=== PATIENT | male | born 1970 | race Caucasian/White ===

== ENCOUNTER 2021-05-15 11:32 | Emergency (ER) | payer BC, SELFPAY ==
--- NOTE | ~2021-05-15 | CT_ITS ---
EXAMINATION: CT abdomen pelvis wo con EXAM DATE: 05/15/2021 12:17 INDICATION: Hematuria, bilateral flank pain. TECHNIQUE: Spiral CT of the abdomen and pelvis was performed without contrast. Axial, coronal and sag ittal images were reviewed. The dose-length product (DLP) for this examination was 488.26 mGy-cm. T he exposure was tailored according to patient size (auto mA exposure control), and iterative reconstr uction (ASIR) was used as additional dose reduction technique. There is no prior study for compariso n. FINDINGS: Punctate left inferior calyceal stone. No ureteral stones. Mild prostatomegaly. There is d iffuse moderate bladder wall thickening with hazy indistinct wall, inflammation. Appearance consisten t with acute cystitis. Calcified vasa deferentia, has correlation diabetes. The liver, spleen, adren al glands and pancreas are unremarkable. Gallbladder is unremarkable. No biliary obstruction. Ther e is no retroperitoneal or pelvic lymphadenopathy. The appendix is normal. The stomach and small bowel are unremarkable. There is expected amount of c olonic stool. No free intraperitoneal gas. The heart is normal in size. There are no pericardial or pleural effusions. The lung bases are unremarkable. There are no osteoblastic or osteolytic les ions identified. IMPRESSION: 1. Severe acute cystitis. 2. Punctate left nephrolithiasis. Reviewed, dictated and finalized at location B. CLERK PASSENGER
[2021-05-15 11:37] VITALS: BP 105/76; PULSE 75; RESP 16; O2SAT 98
[2021-05-15 12:22] VITALS: BP 105/76; PULSE 75; RESP 20; TEMP 36.3; O2SAT 98
[2021-05-15 12:52] LABS: Add Urine Microscopic? YES; Appearance Urine Cloudy (Clear); Bilirubin Urine Negative (Negative); Blood Urine 3+ (Negative); Color Urine Amber (Yellow); Glucose Urine UA 3+ mg/dL (Negative); Ketones Urine Negative (Negative); Leukocyte Esterase Ur Negative LEU/UL (Negative); Mucus Urine Rare /lpf; Nitrate Urine Negative (Negative); Protein Urine 3+ mg/dL (Negative); RBC Urine >75 /hpf (0-2); Urobilinogen Urine Negative mg/dL (<2.0); WBC Urine 16-20 /hpf
[2021-05-15 13:08] LABS: Basophils Absolute Auto 0.1 K/mm3 (0.0-0.1); Basophils Percent Auto 0.6 % (0.2-1.2); Eosinophils Absolute Auto 0.3 K/mm3 (0-0.3); Eosinophils Percent Auto 3.2 % (0-4.4); Hematocrit 48.1 % (42.0-52.0); Hemoglobin 16.4 g/dL (14.0-18.0); Immature Granulocyte Absolute 0.02 K/mm3 (0.00-0.031); Immature Granulocyte Percent A 0.2 % (0-0.5); Lymphocytes Percent Auto 26.4 % (18.3-44.2); Mean Corpuscular HGB Conc 34.1 g/dl (32-36); Mean Corpuscular Hemoglobin 28.3 pg (26-34); Mean Corpuscular Volume 83.1 fl (80-100); Monocytes Absolute Auto 1.1 K/mm3 (0.1-0.6); Monocytes Percent Auto 9.9 % (2.6-8.5); Neutrophils Absolute Auto 6.4 K/mm3 (1.3-6.7); Neutrophils Percent Auto 59.7 % (45.5-73.1); Platelet Count Result 268 k/mm3 (150-375); Red Blood Count 5.79 M/mm3 (4.6-6.20); White Blood Count 10.6 K/mm3 (4.5-10.0)
[2021-05-15 13:22] LABS: Anion Gap 9 mmol/L (8-16); Blood Urea Nitrogen 16 mg/dL (9-20); Calcium 9.8 mg/dL (8.4-10.2); Carbon Dioxide 28 mmol/L (22-30); Chloride 100 mmol/L (98-107); Estimated CRCL calculation 112 ml/min; Estimated Glomerular Filt Rate > 60; Glucose 175 mg/dL (65-110); Potassium 4.3 mmol/L (3.4-5.0); Sodium 137 mmol/L (137-145)
[2021-05-15 13:42] LABS: Specific Grav Ur 1.036 (1.001-1.035)
--- NOTE | 2021-05-15 14:21 | ED.GENADULT ---
HPI - General Adult General Chief complaint: Urogenital-Male Stated complaint: groin pain/urinary frequency Time Seen by Provider: 05/15/21 11:45 History of Present Illness HPI narrative: Patient is a 51-year-old male who presents ER with urinary frequency urgency and dysuria as well as hematuria for the last 3 days. No fevers or chills or sweats. Sent by PCP due to concerns for kidney stone. Pain radiates from his lower quadrants into his groin bilaterally. Related Data Home Medications Medication Instructions Recorded Confirmed atorvastatin 05/15/21 canagliflozin [Invokana] mg 05/15/21 ergocalciferol (vitamin D2) 05/15/21 fenofibrate nanocrystallized mg PO 05/15/21 insulin degludec [Tresiba SUBCUT 05/15/21 FlexTouch U-100] insulin lispro [Humalog KwikPen SUBCUT 05/15/21 Insulin] lisinopril 05/15/21 metoprolol succinate PO 05/15/21 ticagrelor [Brilinta] mg 05/15/21 Allergies Allergy/AdvReac Type Severity Reaction Status Date / Time NKDA Allergy Mild Unknown Uncoded 05/15/21 12:25 Review of Systems Review of Systems: All systems reviewed & are unremarkable except as noted in HPI and below Constitutional: Constitutional: Denies fever(s) and Denies weakness Gastrointestinal: Gastrointestinal: Reports abdominal pain, Denies nausea and Denies vomiting Genitourinary: Genitourinary: Reports hematuria, Reports dysuria, Denies penile discharge, Denies testicular pain and Reports urinary frequency Musculoskeletal: Musculoskeletal: Denies back pain and Denies muscle cramps PMFSH Past Medical History Medical History (Updated 05/15/21 @ 14:33 by Jasper Brumfield MD) Hypercholesterolemia Type 2 diabetes mellitus Surgical History Surgical History (Updated 05/15/21 @ 14:25 by Jasper Brumfield MD) No pertinent past surgical history Exam Narrative: GENERAL: Well-appearing, well-nourished, and in no acute distress. HEAD: Normocephalic, atraumatic. CHEST: Clear to auscultation. No respiratory distress. HEART: Regular rate and rhythm. Normal peripheral pulses. ABDOMEN: Soft, suprapubic discomfort without guarding, nondistended. EXTREMITIES: Normal range of motion. No edema. NEURO: Alert and oriented x3. PSYCH: Normal mood and affect. Course Course Emergency Course: Patient informed of results. Discharge home. Vital Signs Vital signs: Vital Signs Pulse Rate 75 05/15/21 11:37 Respiratory Rate 16 05/15/21 11:37 Blood Pressure 105/76 05/15/21 11:37 Pulse Oximetry 98 05/15/21 11:37 Temperature 97.4 F L 05/15/21 12:22 Pulse Rate 75 05/15/21 12:22 Respiratory Rate 20 05/15/21 12:22 Blood Pressure 105/76 05/15/21 12:22 Pulse Oximetry 98 05/15/21 12:22 Medical Decision Making Vital Signs Vital Signs: Vital Signs Pulse Rate 75 05/15/21 11:37 Respiratory Rate 16 05/15/21 11:37 Blood Pressure 105/76 05/15/21 11:37 Pulse Oximetry 98 05/15/21 11:37 Temperature 97.4 F L 05/15/21 12:22 Pulse Rate 75 05/15/21 12:22 Respiratory Rate 20 05/15/21 12:22 Blood Pressure 105/76 05/15/21 12:22 Pulse Oximetry 98 05/15/21 12:22 Lab Data Result diagrams: 05/15/21 12:54 05/15/21 12:54 Labs: Lab Results 05/15/21 05/15/21 05/15/21 Range/Units 12:28 12:54 12:54 WBC 10.6 H (4.5-10.0) K/mm3 RBC 5.79 (4.6-6.20) M/mm3 Hgb 16.4 (14.0-18.0) g/dL Hct 48.1 (42.0-52.0) % MCV 83.1 (80-100) fl MCH 28.3 (26-34) pg MCHC 34.1 (32-36) g/dl RDW 13.0 (11.5-14.5) % Plt Count 268 (150-375) k/mm3 MPV 11.0 H (7.4-10.4) fl Immature Gran % (Auto) 0.2 (0-0.5) % Neut % (Auto) 59.7 (45.5-73.1) % Lymph % (Auto) 26.4 (18.3-44.2) % [place] % (Auto) 9.9 H (2.6-8.5) % Eos % (Auto) 3.2 (0-4.4) % Baso % (Auto) 0.6 (0.2-1.2) % Lymph # (Auto) 2.80 (0.9-3.2) K/mm3 [place] # (Auto) 1.1 H (0.1-0.6) K/mm3 Eos # (Auto) 0.3 (0-0.3) K/mm3 Baso
== END 2021-05-15 14:57 | disposition home or self-care (01) ==
PROVIDERS: Emergency Provider Emergency Medicine; PCP Family Medicine
DX: N30.90 Cystitis, unspecified without hematuria (principal); E78.00 Pure hypercholesterolemia, unspecified; E11.9 Type 2 diabetes mellitus without complications
CPT/HCPCS: 36415; 74176; 80048; 81001; 85025; 87086; 87088; 99284

== ENCOUNTER 2025-03-14 01:16 | Day surgery (SDC) | payer BC, SELFPAY ==
--- OUTSIDE RECORDS SUMMARY | 2008-09-29 03:30 | XMS_ITS | Continuity of Care Document ---
Author Organization [facility] Address [address] [place] [address] [address] [place] [address] Phone Care Team Providers Care Communications Electrician Supervisor Name Role Phone Mery Doe Unavailable Unavailable Procedures Procedure Date Office/outpatient Visit, [facility] Advance Directives Directive Yes / No Effective Date File Name No Information Encounters Encounter Description Practice Location Reason(s) For Visit Diagnoses Date Provider Providers Copied on Encounter Office/outpat ient Visit, [facility], [address] [place] [address] [address], [place], [place], [id number], tel:[phone] [facility] No Information 1-[address] , [address], [place], [address], [place]. tel:[phone] Referring Provider: Simeon Lim MD, [address] [place], [address]. tel:[phone] Family History Family Member Type Diagnosis Age At Onset No Information Payers Payer name Insurance type Covered democrat ID Authoriza tion(s) BCBS [place] Out [place] [id number] Social History Type Description Quantity Date Captured Comments Sex Male Smoking Status No Information Chief Complaint And Reason For Visit No Information Reason For Referral Reason For Referral No Information History Of Present Illness Encounter Date Complaint History Of Prese nt Illness No Information Functional Status Date Functional Assessmen t No Information Instructions Date Instruction Additional Infor mation No Information Assessments Type Assessment Date No Information Patient Care Teams Name Effective Dates (start - stop) Status Members No Information
[2025-03-10 12:20] VITALS: BMI 37.6
--- NOTE | 2025-03-10 12:43 | PC.NURSE ---
Spoke with _03/09/[address] Rodriguez office for clearance to hold Brilinta. Patient verbalizes that Dr. Rodriguez told him to hold Brilinta starting with pm dose 03/09/2025 until after colonoscopy and the Endoscopist will instruct him when to restart after the procedure. To remain on his ASA 81mg daily.
--- OUTSIDE RECORDS SUMMARY | 2025-03-14 01:18 | XMS_ITS | Encounter Summary ---
Author Organization [facility] Address [address] [place] [address] Care Team Providers Care E Learning Developer Name Role Phone Unavailable Primary Care Provider Unavailabl e Encounter Details Date Type Department Care Team (Late st Contact Info) Description 05/24/2019 Lab Requisition [facility] [address] [place] [address] [place] [place] [address] Pedro Mayers MD [address] [place] [address] Social History Tobacco Use Types Packs/Day Years Used Date Smoking Tobacco: Never Assessed Sex and Gender Information Value Date Recorded Sex Assigned at Not on file Legal Sex Male 11:36 PM CDT Gender Identity Not on file Sexual Orientation Not on file documented as of this encounter Plan of Treatment Not on file documented as of this encounter Procedures Procedure Name Priority Date/Time Associated Diagnosis Comments TROPONIN Stat 05/24/2019 3:35 PM INTERNET SALES ASSOCIATE BRAIN NATRIURETIC PEPTIDE, BNP OR PROBNP Routine 05/24/2019 3:35 PM INTERNET SALES ASSOCIATE documented in this encounter Results * (ABNORMAL) BRAIN NATRIURETIC PEPTIDE, BNP OR PROBNP (05/24/2019 3:35 PM INTERNET SALES ASSOCIATE) PROBNP, N TERMINAL 888(H) <124 pg/mL 05/24/2019 4:28 PM INTERNET SALES ASSOCIATE [facility] [employer] [facility] Comment: Reference values for screening purposes based on machine tester's recommendation: Patients less than 75 years: <125 pg/mL Patients 75 years and older: <450 pg/mL Reference values for determination of acute congestive heart failure in dyspneic patients based on PRIDE study (Am J Cardiol 2005;95:948): Patients less than 50 years: <450 pg/mL (Negative predictive value= 99%) Patients 50 years and older: <900 pg/mL (Negative predictive value= 92%) Rule out cutpoint, all ages: <300 pg/mL (Negative predictive value= 99%) Blood Collection / Unknown 05/24/2019 3:35 PM INTERNET SALES ASSOCIATE 05/24/2019 3:35 PM INTERNET SALES ASSOCIATE Pedro Mayers MD CHEMISTRY ORDERABLES Umm l Result [facility] CLIA# [id number] [address] [place] [address] * (ABNORMAL) TROPONIN (05/24/2019 3:35 PM INTERNET SALES ASSOCIATE) TROPONIN T, 5TH GEN 44(H) <=15 ng/L 05/24/2019 4:30 PM INTERNET SALES ASSOCIATE [facility] Blood Collection / Unknown 05/24/2019 3:35 PM INTERNET SALES ASSOCIATE 05/24/2019 3:35 PM INTERNET SALES ASSOCIATE Narrative [facility] - 05/24/2019 4:30 PM INTERNET SALES ASSOCIATE Troponin elevated. us Pedro Mayers MD CHEMISTRY ORDERABLES Umm l Result Performing Organization Address [facility]/ZIP Co de Phone Number [facility] [employer] [facility] CLIA# [id number] [address] [place] [address] documented in this encounter Visit Diagnoses Not on filedocumented in this encounter
--- OUTSIDE RECORDS SUMMARY | 2025-03-14 01:18 | XMS_ITS | Clinical Summary ---
Author Organization [facility] Address [address] [place] [phone] Phone Care Team Providers Care Barrow Worker Helper Name Role Phone Unavailable Primary Care Provider Unavailabl e Social History Tobacco Use Types Packs/Day Years Used Date Smoking Tobacco: Never Assessed Sex and Gender Information Value Date Recorded Sex Assigned at Not on file Legal Sex Male 11:36 PM CDT Gender Identity Not on file Sexual Orientation Not on file Plan of Treatment Health Maintenance Due Date Last Done Comments DTAP/TDAP/TD VACCINES (1 - Tdap) 01/07/1991 HEPATITIS B VACCINES (1 of 3 - 19+ 3-dose series) 01/1991 COLORECTAL SCREENING 01/07/2017 Colorectal Cancer Screening 01/07/2017 FIT-DNA Q 3 years 01/07/2017 FIT/FOBT Q 1 year 01/07/2017 Flex Sig/CT Colonography Q 5 years 01/07/2017 ZOSTER VACCINE (1 of 2) 01/07/2022 INFLUENZA VACCINE (#1) 2024
--- OUTSIDE RECORDS SUMMARY | 2025-03-14 01:19 | XMS_ITS | Clinical Summary ---
Author Organization [facility] Address [address] [place] [address] Care Team Providers Care Wood Patternmaker Name Role Phone Simeon Lim MD Primary Care Provider [phone] Allergies Active Allergy Reactions Criticality Noted Date Comments Insulin Glargine Other (See comments) Medium 8 Abdominal cramping, gas, bloating Medications insulin syringe-needle U-100 0.5 mL 31 gauge x 5/16 syringe USE 3-4 DAILY Active tadalafil (CIALIS) 20 mg tablet Take 1 tablet (20 mg total) by mouth daily as needed for erectile dysfunction. 10 tablet 3 Active blood glucose diagnostic stripIndications:Ty pe 2 diabetes mellitus with hyperglycemia, unspecified whether fpc insulin use (HCC) verio one touch test strips test 4x/ day 400 each 2 Active lancets (ONETOUCH DELICA LANCETS) 30 gauge miscIndications:Typ e 2 diabetes mellitus with hyperglycemia, unspecified whether long term care administrator insulin use ([facility]) Check blood sugar four times a day or as directed 300 each 3 Active metoprolol XL (TOPROL-XL) 50 mg 24 hr tablet Take 1 tablet (50 mg total) by mouth daily 30 tablet 11 Active Additional Information Patient not taking.Reported on 04/27/2023 aspirin 81 mg enteric coated tablet Take 1 tablet (81 mg total) by mouth daily 30 tablet 11 Active glucagon (Gvoke PFS 1-Pack Syringe) 1 mg/0.2 mL syringeIndications: Coronary artery disease involving hopi heart without angina pectoris, unspecified vessel or lesion type,Type 2 diabetes mellitus with other circulatory complication, with long-term current use of insulin Inject 1 mg under the skin as needed (as needed for severe hypoglycemia) 2 Syringe 3 020 Active Additional Information Patient not taking.Reported on 04/27/2023 pen needle, diabetic (BD Ultra-Fine Keily Pen Needle) 32 gauge x needleIndications:T ype 2 diabetes mellitus with hyperglycemia, unspecified whether fpc insulin use (HCC) Use with insulin dosing 4-5 x/ day 350 each 3 021 Active fenofibrate nanocrystallized (Tricor) 145 mg tabletIndications:T ype 2 diabetes mellitus treated with insulin ([facility]) Take 1 tablet (145 mg total) by mouth daily 90 tablet 2 021 Active atorvastatin (LIPITOR) 80 mg tablet Take 1 tablet (80 mg total) by mouth daily 90 tablet 3 021 Active tamsulosin (FLOMAX) 0.4 mg extended release capsule Take by mouth daily 021 Active Brilinta 60 mg tablet Take 1 tablet (60 mg total) by mouth 2 (two) times a day 022 Active flash glucose sensor (FreeStyle Poornima 2 Sensor) kitIndications:Type 2 diabetes mellitus with other circulatory complication, with long-term current use of insulin Use 1 sensor every 14 days 6 kit 3 025 Active ezetimibe (ZETIA) 10 mg tabletIndications:T ype 2 diabetes mellitus with hyperglycemia, with long-term current use of insulin ([facility]),Mixed hyperlipidemia,David nary artery disease involving hopi heart without angina pectoris, unspecified vessel or lesion type TAKE 1 TABLET DAILY 90 tablet 3 025 Active gabapentin (NEURONTIN) 100 mg capsuleIndications: Diabetic neuropathy associated with type 2 diabetes mellitus ([facility]) Take 1 capsule (100 mg total) by mouth 3 (three) times a day 270 capsule 1 025 2025 Active ergocalciferol (VITAMIN D) 50,000 unit capsule Take 1 capsule (50,000 Units total) by mouth daily Active insulin degludec (TRESIBA) 100 unit/mL (3 mL) pen for injectionIndication s:Type 2 diabetes mellitus with hyperglycemia, with long-term current use of insulin (HCC) INJECT 54 UNITS DAILY (TOTAL DAILY DOSE 58 UNITS WITH PRIMING) 45 mL 2 025 Active HumaLOG 100 unit/mL pen for injectionIndication s:Type 2 diabetes mellitus with hyperglycemia, with long-term current use of insulin (HCC) Inject 34-36 units under the skin three times a day before meals. MDD 130 units 120 mL 2 025 Active lisinopriL (PRINIVIL,ZESTRIL) 10 mg tabletIndications:T ype 2 diabetes mellitus with hyperglycemia, unspecified whether long term care administrator insulin use (HCC) TAKE 1 TABLET DAILY 90 tablet 3 025 Active lisinopriL (PRINIVIL,ZESTRIL) 10 mg tabletIndications:T ype 2 diabetes mellitus with hyperglycemia, unspecified whether fpc insulin use (HCC) Take 1 tablet (10 mg total) by mouth daily 90 tablet 2 025 2024 Discontinued Active Problems Problem Noted Date Diagnosed Date Diabetic neuropathy associat ed with type 2 diabetes mellitus 09/02/2024 Coronary artery disease involving hopi heart 1 07/12/2018 High risk medication use 05/02/2019 Assessment & Plan (05/04/2019 2:43 PM PERINATAL EDUCATOR): Intense insulin regimen in the setting of variable oral and stress intake places patient at increased risk of hypoglycemia/hyperglycemia which may have serious metabolic, CV and neuro consequences. We will continue to intensely monitor blood glucose and titrate insulin as needed to optimize glycemic control to avoid hypoglycemic/hyperglycemic events. Assessment & Plan (05/03/2019 5:31 PM PERINATAL EDUCATOR): Intense insulin regimen in the setting of variable oral and stress intake places patient at increased risk of hypoglycemia/hyperglycemia which may have serious metabolic, CV and neuro consequences. We will continue to intensely monitor blood glucose and titrate insulin as needed to optimize glycemic control to avoid hypoglycemic/hyperglycemic events. Assessment & Plan (05/02/2019 4:55 PM PERINATAL EDUCATOR): Intense insulin regimen in the setting of variable oral and stress intake places patient at increased risk of hypoglycemia/hyperglycemia which may have serious metabolic, CV and neuro consequences. We will continue to intensely monitor blood glucose and titrate insulin as needed to optimize glycemic control to avoid hypoglycemic/hyperglycemic events. ST elevation myocardial infa rction involving right coronary artery 05/01/2019 Assessment & Plan (05/03/2019 2:54 PM PERINATAL EDUCATOR): EKG with inferior STEMI, LHC with 100% proximally occluded large right coronary artery, 95% distal LAD and 90% mid circ. - PIPE to prox RCA 05/01, with resolution of his chest pain, cardiogenic shock and bradycardia. - PIPE to prox and distal-LAD, distal LCx/OM on 05/02 - Continue Aspirin 81 mg daily, Ticagrelor 90 mg BID, atorvastatin 80 - Continue metoprolol 12.5 q6hrs, can continue to titrate as tolerated and consolidate to XL prior to discharge - Frequent neurovascular checks - Encourage risk factor modification Cardiogenic shock 05/01/2019 Assessment & Plan (05/03/2019 2:57 PM PERINATAL EDUCATOR): Resolved following PCI. - Not requiring pressors or circulatory support - TTE with EF 40-45%, normal RV function, no significant valvular disease Chest wall pain 07/28/2018 Assessment & Plan (07/28/2018 3:57 PM PERINATAL EDUCATOR): See PCP regarding CP, which seems to happen occasionally at home, nonradiating, no SOB. Will see PCP this week, and go to ER if Tinea pedis of both feet 03/31/2018 Type 2 diabetes mellitus with hyperglycemia 11/30 Assessment & Plan (04/03/2018 1:03 PM CDT): .Stop toujeo tresiba 30 units daily Humalog 10 units at each meal and 1 u for every 25 points over 150 for corrections at meals Send blood sugar record to me in 2 weeks through [facility] Type 2 diabetes mellitus treated with insulin Overview (11/18/2017): He was Dx with diabetes in about 2004 when he was at a family gathering and checked his BG, which was more than 500. He saw his doctor, was started on metformin, glipizide, and later therapies included glimepiride, pioglitazone and, more recently, Bydureon as of about 8 months ago. Since this was suboptimal, he was started on hs Lantus 2014. DM complicated by asymptomatic microalbuminuria, started on lisinopril per his PCP. In 2013 Type 2 diabetes mellitus 03/28/2015 Vitamin D deficiency disease 03/20/2015 Male erectile disorder 03/19/2015 Microalbuminuria 03/19/2015 Assessment & Plan (04/03/2018 1:07 PM CDT): Needs repeat microalbumin/cr ratio soon Hyperlipidemia 03/19/2015 Assessment & Plan (05/04/2019 2:43 PM PERINATAL EDUCATOR): Managed by primary team Recommend continuing statin Assessment & Plan (05/03/2019 5:31 PM PERINATAL EDUCATOR): Managed by primary team Recommend continuing statin Assessment & Plan (05/02/2019 4:56 PM PERINATAL EDUCATOR): Managed by primary team Recommend continuing statin Assessment & Plan (05/02/2019 12:55 PM PERINATAL EDUCATOR): - Switched home atorvastatin 20 mg to 80 mg Assessment & Plan (04/03/2018 1:07 PM CDT): Needs fu FLP done in next 1-2 months Work on better BS control Essential hypertension 03/19/2015 Assessment & Plan (05/02/2019 12:49 PM PERINATAL EDUCATOR): - Continue home lisinopril 20 mg daily - Initiate metoprolol as above Type 2 diabetes mellitus, wi th long-term current use of insulin 03/19/2015 Overview (05/02/2019): 49 y.o. male with past medical history significant for CAD, HLD, HTN, microalbuminuria and T2DM who presented to OSH for 3 days of chest pain radiating down both arms and into his left jaw and was found to have inferior STEMI. Diagnosed with T2DM in 2004; managed by Dr. Aleja Avina and Raiza Schwarz NP. HGBA1C 12.1 (H) 05/01/2019 HOME REGIMEN: Tresiba 30 units daily (was out of Tresiba for ~1 month; resumed 2 weeks ago) Humalog 10 units TID with meals (he reports he usually does not take mealtime insulin) Metformin 1000 mg daily (has been out of this for ~1.5 months) Assessment & Plan (05/04/2019 2:55 PM PERINATAL EDUCATOR): Over the previous 24 hours, blood glucose in good margin of safety, but not at target with range of 146-248 mg/dl with 58 units TDD insulin coverage. Target inpatient blood glucose is 100-180 mg/dl. Blood glucose this morning was 261 mg/dl (consumed breakfast before blood glucose was checked). Pre-lunch blood glucose was 147 mg/dl. Glycemic management complicated by variable oral intake and stress. As glycemia improving, we recommend continuing the current insulin regimen. We will continue to intensely monitor blood glucose and titrate insulin as needed to optimize glycemic control to avoid hypoglycemic/hyperglycemic events. Recommendations: - Continue Lantus 25 units Q HS - Continue Humalog 10 units TID with meals - Continue mid dose correction scale TID/HS - Monitor blood glucose TID/HS Discharge Recommendations: - Tresiba 28 units once daily - Humalog 10 units TID with meals plus 1 unit per 50 points greater than 150 mg/dl. - Metformin 500 mg BID; advance to 1000 mg BID as tolerated - He would be a good candidate for GLP-1 weekly injection due to its cardioprotective qualities - Diabetes education prior to discharge (plans to send patient home with Poornima CGM) Follow Up: - 05/11 at 2:00 pm with Raiza Schwarz NP to reassess glycemia and to titrate diabetes regimen as needed. - Would start GLP-1 (Trulicity or Ozempic depending on insurance formulary) - 05/11 at 3:00 pm with MARIA ANTONIA Preston Recommendations for diabetes management were discussed with the primary team. For questions regarding this patient today, please call Gertrude Easley NP at [phone]. If after hours, please contact the Diabetes Fellow at [phone]. Assessment & Plan (05/03/2019 5:35 PM PERINATAL EDUCATOR): Over the previous 24 hours, blood glucose in good margin of safety, but not at target with range of 171-231 mg/dl with 37 units TDD insulin coverage. He only consumed one meal yesterday as he was NPO for cardiac cath and testing. Target inpatient blood glucose is 100-180 mg/dl. Fasting blood glucose was 196 mg/dl. Pre-lunch blood glucose was 193 mg/dl. Glycemic management complicated by variable oral intake and stress. As glycemia above target, we recommend increasing the bolus insulin dose and continuing the current basal/correction insulin doses. We will continue to intensely monitor blood glucose and titrate insulin as needed to optimize glycemic control to avoid hypoglycemic/hyperglycemic events. Recommendations: - Continue Lantus 25 units Q HS - Increase Humalog from 8 units to 10 units TID with meals - Continue mid dose correction scale TID/HS - Monitor blood glucose TID/HS Tentative Discharge Recommendations: - Home insulin and metformin (doses TBD) - He would be a good candidate for GLP-1 weekly injection due to its cardioprotective qualities Follow Up: - Thursday, 05/11 at 2:00 pm with Raiza Schwarz NP to reassess glycemia and to titrate diabetes regimen as needed. - Would start GLP-1 (Trulicity or Ozempic depending on insurance formulary) Recommendations for diabetes management were discussed with the primary team. For questions regarding this patient today, please call Gertrude Easley NP at [phone]. If after hours, please contact the Diabetes Fellow at [phone]. Assessment & Plan (05/02/2019 5:03 PM PERINATAL EDUCATOR): Since admission, blood glucose has been above target. On 04/30/19, blood glucose range was 369-408 mg/dl with 12 units TDD insulin coverage. Over the previous 24 hours, blood glucose remained above goal with range of 220-306 mg/dl with 66 units TDD insulin coverage. Target inpatient blood glucose is 100-180 mg/dl. Fasting blood glucose this morning was 201 mg/dl. At 1104, blood glucose was 180 mg/dl. Glycemic management complicated by variable oral intake and stress. As glycemia above target, we recommend increasing the basal insulin and correction scale insulin doses and continuing the current bolus insulin dose. We will continue to intensely monitor blood glucose and titrate insulin as needed to optimize glycemic control to avoid hypoglycemic/hyperglycemic events. Recommendations: - Increase Lantus from 20 units to 25 units Q HS - Continue Humalog 8 units TID with meals - Increase correction scale from low-dose Q 4 hours to mid dose TID/HS (once diet is advanced) - Monitor blood glucose TID/HS Tentative Discharge Recommendations: - Home insulin and metformin (doses TBD) Follow Up: - 1-2 weeks after discharge with consumer educator in [facility] with Raiza Schwarz NP/Dr. Avina to reassess glycemia and to titrate diabetes regimen as needed. Recommendations for diabetes management were discussed with the primary team. For questions regarding this patient today, please call Gertrude Easley NP at [phone]. If after hours, please contact the Diabetes Fellow at [phone]. Assessment & Plan (05/03/2019 2:54 PM PERINATAL EDUCATOR): Poorly controlled. Home regimen Tresiba 30 units daily, Humalog 10 units TID, ?sliding scale. - A1c 12.1% on admission - Hyperglycemic on admission likely secondary to poor medication compliance - Lantus 25 units QHS, Lispro 8 units + MDISS TID with meals - Endocrinology following, appreciate recs - certified breastfeeding educator consult Assessment & Plan (07/31/2018 11:24 AM PERINATAL EDUCATOR): Diabetes very poor control, doesn't check his BS and misses many doses of humalog. WE talked very directly about this issue and the extreme health risk he is putting himself in. He agrees to test more frequently, refilled all prescirptions, labs ordered, but he didn't get them done today. He agrees to send BS to us for review. Strategies discussed regarding ways to avoid missing doses. Also reviewed how to do corrections for high blood sugars. Urged to see CDE soon And seemed to agree to schedule. Encounters Date Type Department Care Team Description 01/06/2025 9:20 AM CDT Office Visit [facility] Medicine Endocrinology Metabolism and Lipid [address] [facility] [facility] [address] [place] [address] [place] [address] Bea Dave MD Type 2 diabetes mellitus with hyperglycemia, with long-term current use of insulin (HCC) (Primary Dx); Diabetic neuropathy associated with type 2 diabetes mellitus (HCC); Essential hypertension; Mixed hyperlipidemia; Coronary artery disease involving hopi heart without angina pectoris, unspecified vessel or lesion type from Last 3 Months Immunizations Immunization Administration Dates Next Due Influenza, Quadrivalent, [place] l Culture-based MDCK, Preservative Free, Antibiotic Free, Intramuscular 03/26/2020 Influenza, Unspecified 03/01/2021 Moderna SARS-CoV-2 Monovalent Vaccination (12+ Y RS) 08/14/2020,07/17/2020 Surgical History Surgery Date Site/Laterality Comments NECK SURGERY Neck Surgery - removal of a lump L side of neck - infant (Added by Conv) Medical History Medical History Date Comments Personal history of other in fectious and parasitic diseases History of varicella - (Adde d by Conv) Type 2 diabetes mellitus wit h hyperglycemia (HCC) Type 2 diabetes mellitus wit h hyperglycemia - (Added by TW Conv) Type 2 diabetes mellitus wit hout complications Diabetes mellitus treated wi th insulin and oral medication - (Added by TW Conv) Family History Medical History Relation Name Comments Diabetes type II Father Type 2 Diab etes Mellitus - (Added by TW Conv) Relation Name Status Comments Father Social History Tobacco Use Types Packs/Day Years Used Date Smoking Tobacco: Never Smokeless Tobacco: Never Tobacco Cessation:Counseling Given: Not Answered PHQ-2 Answer Date Recorded PHQ-2 Score 0 05/01/2019 Sex and Gender Information Value Date Recorded Sex Assigned at Not on file Legal Sex Male 5:04 AM PERINATAL EDUCATOR Gender Identity Not on file Sexual Orientation Not on file Obstetrics History Last Filed Vital Signs Vital Sign Reading Time Taken Comments Blood Pressure 109/70 01/06/2025 9:13 AM CDT Pulse 65 01/06/2025 9:13 AM CDT Temperature 36.9 C (98.4 F) 01/06/2025 9:13 AM CDT Respiratory Rate 18 05/04/2019 11:0 5 AM PERINATAL EDUCATOR Oxygen Saturation 97% 10/09/2020 2:57 PM CDT Inhaled Oxygen Concentration - - Weight 121.2 kg (267 lb 3.2 oz) 01/06/2025 9:13 AM CDT Height 180.3 cm (5' 11) 01/06/2025 9:13 AM CDT Body Mass Index 37.27 01/06/2025 9:13 AM CDT Plan of Treatment Health Maintenance Due Date Last Done Comments Colon Cancer Screening-Colonoscopy 1972 Hepatitis C Screening 1972 Prostate Cancer Screening-PSA 1972 Dilated Eye Exam 1972 DTaP/Tdap/Td Vaccine (1 - Tdap) 01/07/1983 Hepatitis B Screening 01/07/1990 Regular Well Visit/Exam 18-64 01/07/1990 Pneumococcal vaccine <65 (1 of 2 - PCV) 01/07/1991 Depression Screening 05/01/2020 05/01/2019 Foot Exam 05/02/2020 05/02/2019, 03/03, 11/18/2017 Zoster Vaccine (1 of 2) 01/07/2022 Covid-19 Vaccine (3 - 2024-2 6 season) 2025 08/14/2020, 07/17/2020 Influenza Vaccine (#1) 2025 03/01/2021, 2019 Albumin Creatinine Ratio, Urine 07/04/2025 07/04/2024, 04/27/2023, 01/28/2022, Additional history exists Lipid Panel 07/04/2025 07/04/2024, 04/02, 01/28/2022, Additional history exists eGFR 07/04/2025 07/04/2024, 04/02, 01/28/2022, Additional history exists Hemoglobin A1C 07/09/2025 01/06/2025, 02/0 07/2024, 08/24/2023, Additional history exists Medical Devices Implanted Type Area Associate Programmer Device Identifier Shelf Expiration Date Model / Serial / Lot SDL [employer] [id number] Synergy Monorail 4mm 2.7-2.1fr 28mm 144cm Radiopaque 1 Access - [id number] Implanted:Qty: 1 on 05/01/2019 by Pedro Mayers MD at [facility] [employer] Judah 10/24/2020 [id number] 400 / / [id number] [employer] [id number] Synergy 2.5mm 20mm 144cm Radiopaque 1 Access Port Inflation Lumen - [id number] - [id number] Implanted:Qty: 1 on 05/02/2019 by Pedro Mayers MD at [facility] [employer] Judah 01/04/2021 [id number] 250 / [id number] / [id number] [employer] Judah [id number] Synergy 4mm 12mm 144cm Radiopaque 1 Access Port Inflation Lumen - [id number] - [id number] Implanted:Qty: 1 on 05/02/2019 by Pedro Mayers MD at [facility] [employer] Judah 11/30/2020 [id number] 400 / [id number] / [id number] [employer] Judah [id number] Synergy 2.75mm 32mm 144cm Radiopaque 1 Access Port Inflation - [id number] - [id number] Implanted:Qty: 1 on 05/02/2019 by Pedro Mayers MD at [facility] [employer] Judah 11/30/2020 [id number] 270 / [id number] / [id number] Procedures Procedure Name Priority Date/Time Associated Diagnosis Comments POCT GLUCOSE Routine 01/06/2025 9:17 AM CDT Type 2 diabetes mellitus with hyperglycemia, with long-term current use of insulin (HCC) POCT HEMOGLOBIN A1C Routine 01/06/2025 9 :17 AM CDT Type 2 diabetes mellitus with hyperglycemia, with long-term current use of insulin (HCC) EGFR Routine 07/04/2024 5:49 PM PERINATAL EDUCATOR Type 2 diabetes mellitus with other circulatory complication, with long-term current use of insulin (HCC) Mixed hyperlipidemia Coronary artery disease involving hopi heart without angina pectoris, unspecified vessel or lesion type Essential hypertension Type 2 diabetes mellitus with hyperglycemia, unspecified whether long term care administrator insulin use (HCC) Type 2 diabetes mellitus with hyperglycemia, with long-term current use of insulin (HCC) LIPID PANEL Routine 07/04/2024 5:49 PM PERINATAL EDUCATOR Type 2 diabetes mellitus with other circulatory complication, with long-term current use of insulin (HCC) Mixed hyperlipidemia Coronary artery disease involving hopi heart without angina pectoris, unspecified vessel or lesion type Essential hypertension Type 2 diabetes mellitus with hyperglycemia, unspecified whether long term care administrator insulin use (HCC) Type 2 diabetes mellitus with hyperglycemia, with long-term current use of insulin (HCC) ALBUMIN CREATININE RATIO, URINE Routine 07/04/2024 5:49 PM PERINATAL EDUCATOR Type 2 diabetes mellitus with other circulatory complication, with long-term current use of insulin (HCC) Mixed hyperlipidemia Coronary artery disease involving hopi heart without angina pectoris, unspecified vessel or lesion type Essential hypertension Type 2 diabetes mellitus with hyperglycemia, unspecified whether long term care administrator insulin use (HCC) Type 2 diabetes mellitus with hyperglycemia, with long-term current use of insulin (HCC) from Last 3 Months or Most Recently Relevant to Health Maintenance Results * (ABNORMAL) POCT hemoglobin A1c (01/06/2025 9:17 AM CDT) [facility] Hemoglobin A1C, POC 11.0(A) 4.0 - 5.6 % Blood 01/06/2025 9:17 AM CDT us Bea Dave MD POINT OF CARE TEST ORDERAB LES Final Result * POCT glucose (01/06/2025 9:17 AM CDT) [facility] Glucose Blood, POC 255 Normal Fasting 70 - 100, Random <200 mg/dL Blood 01/06/2025 9:17 AM CDT us Bea Dave MD POINT OF CARE TEST ORDERAB LES Final Result * eGFR (07/04/2024 5:49 PM PERINATAL EDUCATOR) [facility] eGFR >90 >=60 mL/min/1. 73 m2 Comment: Interpretive Data Reference Interval Normal >/= 90 mL/min/1.73m2 Mildly decreased* 60 - 89 mL/min/1.73m2 Mildly to moderately decreased 45 - 59 mL/min/1.73m2 Moderately to severely decreased 30 - 44 mL/min/1.73m2 Severely decreased 15 - 29 mL/min/1.73m2 Kidney Failure < 15 mL/min/1.73m2 *Relative to young adult level Estimated glomerular filtration rate is determined by the 2020 CKD-EPI equation recommended by the National Kid[employer] (A Unifying Approach to GFR Estimation: Recommendations of the NKF-ASK Task Force on Reassessing the Inclusion of Race in Diagnosing Kidney Disease, JASN 2020). The CKD-EPI equation should not be used for patients with unstable renal function and has not been validated in children and those over 70. Current interpretive data was last reviewed 2021. Blood 07/04/2024 5:49 PM PERINATAL EDUCATOR 07/04/2024 6:22 PM PERINATAL EDUCATOR Bea Dave MD LAB BLOOD ORDERABLES Final Result Performing Organization Address [facility] Co de Phone Number [facility] Department [place] [employer] [place] [address] * (ABNORMAL) Albumin Creatinine Ratio, Urine (07/04/2024 5:49 PM PERINATAL EDUCATOR) Albumin Ur 97.4 mg/L Comment: Interpretive Data No reference range established. Current interpretive data was last revised 2018. Creatinine Ur 130.3 mg/dL [facility] Comment: Interpretive Data No reference range established. Current interpretive data was last revised 2018. Albumin Creatinine Ratio, Ur 75(H) 1 - 29 mg/g [facility] Urine 07/04/2024 5:49 PM PERINATAL EDUCATOR 07/05/2024 6:50 AM PERINATAL EDUCATOR Bea Dave MD LAB URINE ORDERABLES Final Result Performing Organization Address [facility] Co de Phone Number [facility] [place] [address] * (ABNORMAL) Lipid panel (07/04/2024 5:49 PM PERINATAL EDUCATOR) Cholesterol 103 30 - 199 mg/dL Comment: Interpretive Data Ages < or = 19 years Acceptable: <170 mg/dL Borderline high: 170-199 mg/dL High: >or= 200 mg/dL Ages > or = 20 years Desirable: <200 mg/dL Borderline high: 200-239 mg/dL High: >or= 240 mg/dL Literature References: 1. Expert Panel on Integrated Guidelines for Cardiovascular Health and Risk Reduction in Children and Adolescents. Pediatrics 2011;128:S213 2. NCEP Expert Panel. Circulation 2004;110:227 Current Interpretive Data was last revised on 2018. Triglycerides 90 <=149 mg/dL [facility] Comment: Interpretive Data Ages < or = 9 years Acceptable: <75 mg/dL Borderline high: 75-99 mg/dL High: >or= 100 mg/dL Ages 10 to 20 years Acceptable: <90 mg/dL Borderline high: 90-129 mg/dL High: >or= 130 mg/dL Ages > or = 20 years Desirable: <150 mg/dL Borderline high: 150-199 mg/dL High: 200-499 mg/dL Very high: >or= 499 mg/dL Literature References: 1. Expert Panel on Integrated Guidelines for Cardiovascular Health and Risk Reduction in Children and Adolescents. Pediatrics 2011;128:S213 2. NCEP Expert Panel. Circulation 2004;110:227 Current Interpretive Data was last revised on 2018. HDL 28(L) >=40 mg/dL [facility] Comment: Interpretive Data Ages < or = 19 years Acceptable: >45 mg/dL Borderline low: 40-45 mg/dL Low: <40 mg/dL Ages > or = 20 years Desirable: >or= 60 mg/dL Low: <40 mg/dL Literature References: 1. Expert Panel on Integrated Guidelines for Cardiovascular Health and Risk Reduction in Children and Adolescents. Pediatrics 2011;128:S213 2. NCEP Expert Panel. Circulation 2004;110:227 Current Interpretive Data was last revised on 2018. LDL, calculated 57 <=129 mg/dL [facility] Comment: Interpretive Data Ages < or = 19 years Acceptable: <110 mg/dL Borderline high: 110-129 mg/dL High: >or= 130 mg/dL Ages > or = 20 years Optimal: <100 mg/dL Near optimal: 100-129 mg/dL Borderline high: 130-159 mg/dL High: >160 mg/dL Calculated using the Rivera LDL-C estimating equation. This equation was implemented on 2024. Prior to this date LDL-C was estimated using the Friedewald equation. Literature References: 1. Expert Panel on Integrated Guidelines for Cardiovascular Health and Risk Reduction in Children and Adolescents. Pediatrics 2011;128:S213 2. NCEP Expert Panel. Circulation 2004;110:227 3. Miguel M et al. COURTNEY Cardiol. 2019September 29;5(5):540-548. doi: [email or web address] Current Interpretive Data was last revised on 2024. Non-HDL Cholesterol 75 mg/dL [facility] Comment: Interpretive Data Ages < or = 19 years Acceptable: <120 mg/dL Borderline high: 120-144 mg/dL High: >145 mg/dL Ages > or = 20 years When triglycerides are >200 mg/dL, Non-HDL cholesterol is a secondary target of therapy with treatment goals that are 30 mg/dL greater than the LDL cholesterol target. Literature References: 1. Expert Panel on Integrated Guidelines for Cardiovascular Health and Risk Reduction in Children and Adolescents. Pediatrics 2011;128:S213 2. NCEP Expert Panel. Circulation 2004;110:227 Current Interpretive Data was last revised on 2018. Chol/HDL ratio 4 [facility] Blood 07/04/2024 5:49 PM PERINATAL EDUCATOR 07/04/2024 6:09 PM PERINATAL EDUCATOR Bea Dave MD LAB BLOOD ORDERABLES Final Result [facility] [place] [address] from Last 3 Months or Most Recently Relevant to Health Maintenance Insurance [facility] CHOICE OOS [facility] CHOICE [facility] H[facility]/PPO Address: [address] [address] [place] [address] ANTHEM ACCESS Member Subscriber Plan / Payer (Ef fective 2018-Present) Name:Rahul García Relation to Subscriber:Self Name:Rahul García Payer ID:[id number] ([facility]) Type:[employer] Address: [address] ACCESS OOS ANTHEM ACCESS BLUE ACCESS OOS [facility] ACCESS BLUE ACCESS OOS BLUE ACC CHOICE OOS [facility] Address: [facility] [id number] [place] [address] Advance Directives For more information, please contact: [phone] * Full Code (Latest Code Status on File) Date Activated Date Inactivated Comments 05/01/2019 6:39 AM 05/04/2019 8:54 PM * Full Code Date Activated Date Inactivated Comments 05/01/2019 3:10 AM 05/01/2019 6:39 AM Care Teams Wood Patternmaker Relationship Specialty Start Date End Date Simeon Lim MD [address] [place] [id number] PCP - General 02/24/17
--- NOTE | 2025-03-14 08:31 | WPDANESEPPF ---
Anes - Initial Pre Proc Eval Procedure: Operation Date: 03/14/25 10:00 Proposed Procedures p Screening Colonoscopy - Salomón Cortez DO Date/Time: 03/14/25 08:31 Surgeon: Salomón Cortez DO Pre Op Diagnosis: Neoplasm screening Patient Data Age: 55 Gender: M Height: 1.8 m Weight: 122.5 kg Allergies Allergy/AdvReac Type Severity Reaction Status Date / Time NKDA Allergy Mild Unknown Uncoded 11/28/24 13:15 Home Medications ?Medication ?Instructions ?Recorded ?Confirmed ?Type ezetimibe 10 mg tablet 10 mg PO DAILY #30 tabs 08/01/22 03/14/25 Rx insulin degludec 100 unit/mL (3 60 unit subcut QAM 08/01/22 03/14/25 History mL) subcutaneous pen (Tresiba FlexTouch U-100 insulin) lisinopril 20 mg tablet 20 mg PO DAILY 08/01/22 03/14/25 History omega-3 fatty acids 1,000 mg 1,000 mg PO DAILY #90 caps 08/01/22 03/14/25 Rx capsule aspirin 81 mg capsule 81 mg PO DAILY 10/14/22 03/14/25 History insulin lispro 100 unit/mL 18 unit (0.18 mL) subcut TID #15 mL 10/14/22 03/14/25 Rx subcutaneous pen (Humalog KwikPen (U-100) Insulin) ticagrelor 60 mg tablet (Brilinta) 60 mg PO Q12H #60 tabs 10/14/22 03/14/25 Rx scopolamine base 1 mg over 3 days 1 patch transdermal Q72H PRN 12/10/22 03/10/25 Rx transdermal patch motion sickness #4 ea fenofibrate nanocrystallized 145 See Rx Instructions .Route 11/16/24 03/14/25 Rx mg tablet .COMPLEX #90 tabs gabapentin 100 mg capsule 100 mg PO DAILY 11/28/24 03/10/25 History atorvastatin 80 mg tablet 80 mg PO DAILY #90 tabs 12/30/24 03/14/25 Rx cholecalciferol (vitamin D3) 25 25 mcg PO DAILY 03/10/25 03/14/25 History mcg (1,000 unit) capsule (Vitamin D3) Patient hx anesthesia problems: none Family hx anesthesia problems: none Results Review: All pre-operative results and documents have been reviewed as part of the pre-operative evaluation. [facility] Past Medical History Medical History (Updated 03/14/25 @ 10:14 by Salomón Cortez DO) DM type 2 with diabetic mixed hyperlipidemia Essential hypertension Fatigue Vertigo Type 2 diabetes mellitus with diabetic neuropathy, with long-term current use of insulin Neurogenic bladder History of ST elevation myocardial infarction (STEMI) 05/01/2019 Erectile dysfunction Surgical History Surgical History (Updated 03/13/25 @ 15:59 by Zacarias Modi DO) History of percutaneous coronary intervention proximal and distal LAD, mid LCX and OM1 05/2019 No pertinent past surgical history Family History Family History Father No problems noted. Mother No problems noted. Social History Social History Smoking status: Never smoker Alcohol intake: never Substance use: never Substance use type: does not use Lack of Transportation: No Lack of Food: Never True Current Housing: I Have Housing Concerned About Future Housing: No Difficulty Paying Gas/Electric Bills: No Difficulty Paying for Meds: No Currently Unemployed: No Education: Trade/Vocational Certificate Difficulty w/ Childcare or Family Care: No Living arrangements: with family Occupation/Education: occupation Gender identity (if verbalized by the patient): Male Sexual Orientation (if Verbalized by the Patient): Straight or Heterosexual Spiritual care concerns: No Anes - Eval Final PreProcedure Day of Procedure 03/14/25 08:31 Patient weight: obese Heart: regular rate and rhythm Lungs: clear to auscultation Airway: Mallampati scale class IV Neurological: alert and oriented Last oral intake: >/= 8 hours ASA classification: III Emergent: no Anesthetic plan: proceed Anesthesia type and monitoring: general GIVS and standard monitoring Results Review: All pre-operative results and documents have been reviewed as part of the pre-operative evaluation. Informed Consent: The patient's anesthetic plan and its attendant risks and benefits were discussed with the patient/family/POA. Questions were solicited and answers provided to the satisfaction of the patient/family/POA.
[2025-03-14 08:57] VITALS: BP 104/65; PULSE 65; RESP 18; TEMP 36.1; O2SAT 98; BMI 36.7
[2025-03-14] MEDS: LACTATED RINGERS 1,000 ML 150 ML IV CONT (09:10)
--- NOTE | 2025-03-14 10:14 | PM.IMHP ---
H&P: HPI History of Present Illness Date/Time: 03/14/25 10:14 Chief Complaint: Screening for colorectal cancer Narrative: This is a 55-year-old man who presents for his 1st colonoscopy. He denies any hematochezia or melena. He denies family history of colon cancer. Review of Systems Review of Systems: All systems reviewed & are unremarkable except as noted in HPI and below Constitutional: Constitutional: Denies chills, Denies fever(s), Denies headache(s) and Denies weight loss Eyes: Eyes: Denies change in vision ENT: Denies dizziness, Denies headache(s), Denies neck mass and Denies throat swelling Cardiovascular: Cardiovascular: Denies chest pain, Denies lightheadedness and Denies dyspnea Respiratory: Respiratory: Denies cough, Denies dyspnea and Denies wheezing Gastrointestinal: Gastrointestinal: Denies abdominal pain, Denies change in bowel habits, Denies nausea and Denies vomiting Genitourinary: Genitourinary: Denies hematuria and Denies dysuria Musculoskeletal: Musculoskeletal: Reports as per HPI Integumentary/Breasts: Skin/Breast: Reports as per HPI Neurologic: Denies dizziness and Denies headache(s) Allergic/Immunologic: Allergic/Immunologic: Denies throat swelling and Denies wheezing PMFSH Past Medical History Medical History (Updated 03/14/25 @ 10:14 by Salomón Cortez DO) DM type 2 with diabetic mixed hyperlipidemia Essential hypertension Fatigue Vertigo Type 2 diabetes mellitus with diabetic neuropathy, with long-term current use of insulin Neurogenic bladder History of ST elevation myocardial infarction (STEMI) 05/01/2019 Erectile dysfunction Surgical History Surgical History (Updated 03/13/25 @ 15:59 by Zacarias Modi DO) History of percutaneous coronary intervention proximal and distal LAD, mid LCX and OM1 05/2019 No pertinent past surgical history Family History Family History Father No problems noted. Mother No problems noted. Social History Social History Smoking status: Never smoker Alcohol intake: never Substance use: never Substance use type: does not use Lack of Transportation: No Lack of Food: Never True Current Housing: I Have Housing Concerned About Future Housing: No Difficulty Paying Gas/Electric Bills: No Difficulty Paying for Meds: No Currently Unemployed: No Education: Trade/Vocational Certificate Difficulty w/ Childcare or Family Care: No Living arrangements: with family Occupation/Education: occupation Gender identity (if verbalized by the patient): Male Sexual Orientation (if Verbalized by the Patient): Straight or Heterosexual Spiritual care concerns: No Meds Home Medications and Allergies Home Medications ?Medication ?Instructions ?Recorded ?Confirmed ?Type ezetimibe 10 mg tablet 10 mg PO DAILY #30 tabs 08/01/22 03/14/25 Rx insulin degludec 100 unit/mL (3 60 unit subcut QAM 08/01/22 03/14/25 History mL) subcutaneous pen (Tresiba FlexTouch U-100 insulin) lisinopril 20 mg tablet 20 mg PO DAILY 08/01/22 03/14/25 History omega-3 fatty acids 1,000 mg 1,000 mg PO DAILY #90 caps 08/01/22 03/14/25 Rx capsule aspirin 81 mg capsule 81 mg PO DAILY 10/14/22 03/14/25 History insulin lispro 100 unit/mL 18 unit (0.18 mL) subcut TID #15 mL 10/14/22 03/14/25 Rx subcutaneous pen (Humalog KwikPen (U-100) Insulin) ticagrelor 60 mg tablet (Brilinta) 60 mg PO Q12H #60 tabs 10/14/22 03/14/25 Rx scopolamine base 1 mg over 3 days 1 patch transdermal Q72H PRN 12/10/22 03/10/25 Rx transdermal patch motion sickness #4 ea fenofibrate nanocrystallized 145 See Rx Instructions .Route 11/16/24 03/14/25 Rx mg tablet .COMPLEX #90 tabs gabapentin 100 mg capsule 100 mg PO DAILY 11/28/24 03/10/25 History atorvastatin 80 mg tablet 80 mg PO DAILY #90 tabs 12/30/24 03/14/25 Rx cholecalciferol (vitamin D3) 25 25 mcg PO DAILY 03/10/25 03/14/25 History mcg (1,000 unit) capsule (Vitamin D3) Allergies Allergy/AdvReac Type Severity Reaction Status Date / Time NKDA Allergy Mild Unknown Uncoded 11/28/24 13:15 Vital Signs Vital Signs - 24 hr 03/14/25 08:57 Temperature 97 F L Pulse Rate 65 Respiratory Rate 18 Blood Pressure 104/65 Pulse Oximetry 98 Oxygen Delivery Room Air Exam Const: General: no acute distress and alert Orientation/consciousness: patient oriented x3 HENMT: Head: normocephalic and atraumatic Ears: hearing grossly normal bilaterally Face/Nose/Sinus: Normal nares present Mouth: Yes Normal oral and palatal mucosa present Eyes: Periorbital: periorbital findings normal Sclera: sclerae normal EOM: EOMs intact bilaterally Neck: Neck: normal visual inspection, no lymphadenopathy and trachea midline Chest: Chest palpation & inspection: normal inspection of the chest Resp: Effort & Inspection: normal respiratory effort Auscultation: clear to auscultation bilaterally Cardio: Jugular venous distension: no JVD Rate: regular rate Rhythm: regular rhythm Heart sounds: S1 normal heart sound present and S2 normal heart sound present Peripheral pulses: Peripheral pulses 2+ throughout GI: Inspection: normal to inspection GI Palp: Yes Soft to palpation, No Tenderness to palpation present (GI), No Guarding due to palpation present (GI) and No Rebound tenderness present Percussion: Yes normal to percussion Auscultation: normal bowel sounds : General: Yes no CVA tenderness Back/Spine/Pelvis: Back: no CVA tenderness Neuro: General: patient oriented x3, no focal motor deficits and CN's II-XI intact bilaterally Cognition (Neuro): normal cognition Speech: normal speech Motor exam (neuro): 5/5 motor strength present throughout Extrem: General: capillary refill normal and no clubbing, cyanosis or edema Assessment and Plan Assessment and plan (1) Screening for colorectal cancer: Code(s): Z12.11 - Encounter for screening for malignant neoplasm of colon; Z12.12 - Encounter for screening for malignant neoplasm of rectum Status: Acute Assessment and Plan: I have recommended colonoscopy. I have discussed the procedure, risks, benefits, and alternatives. Questions were answered. Patient is agreeable to proceed.
--- NOTE | 2025-03-14 10:16 | WPDANESEPPF ---
Anes - Initial Pre Proc Eval Procedure: Operation Date: 03/14/25 10:00 Proposed Procedures p Screening Colonoscopy - Salomón Cortze DO Date/Time: 03/14/25 10:16 Surgeon: Salomón Cortez DO Pre Op Diagnosis: Neoplasm screening Patient Data Age: 55 Gender: M Height: 1.8 m Weight: 119.5 kg Last Vital Signs Temp 36.1 C L 03/14/25 08:57 Pulse 65 03/14/25 08:57 Resp 18 03/14/25 08:57 BP 104/65 03/14/25 08:57 Pulse Ox 98 03/14/25 08:57 O2 Del Method Room Air 03/14/25 08:57 Allergies Allergy/AdvReac Type Severity Reaction Status Date / Time NKDA Allergy Mild Unknown Uncoded 11/28/24 13:15 Home Medications ?Medication ?Instructions ?Recorded ?Confirmed ?Type ezetimibe 10 mg tablet 10 mg PO DAILY #30 tabs 08/01/22 03/14/25 Rx insulin degludec 100 unit/mL (3 60 unit subcut QAM 08/01/22 03/14/25 History mL) subcutaneous pen (Tresiba FlexTouch U-100 insulin) lisinopril 20 mg tablet 20 mg PO DAILY 08/01/22 03/14/25 History omega-3 fatty acids 1,000 mg 1,000 mg PO DAILY #90 caps 08/01/22 03/14/25 Rx capsule aspirin 81 mg capsule 81 mg PO DAILY 10/14/22 03/14/25 History insulin lispro 100 unit/mL 18 unit (0.18 mL) subcut TID #15 mL 10/14/22 03/14/25 Rx subcutaneous pen (Humalog KwikPen (U-100) Insulin) ticagrelor 60 mg tablet (Brilinta) 60 mg PO Q12H #60 tabs 10/14/22 03/14/25 Rx scopolamine base 1 mg over 3 days 1 patch transdermal Q72H PRN 12/10/22 03/10/25 Rx transdermal patch motion sickness #4 ea fenofibrate nanocrystallized 145 See Rx Instructions .Route 11/16/24 03/14/25 Rx mg tablet .COMPLEX #90 tabs gabapentin 100 mg capsule 100 mg PO DAILY 11/28/24 03/10/25 History atorvastatin 80 mg tablet 80 mg PO DAILY #90 tabs 12/30/24 03/14/25 Rx cholecalciferol (vitamin D3) 25 25 mcg PO DAILY 03/10/25 03/14/25 History mcg (1,000 unit) capsule (Vitamin D3) Laboratory Tests 03/14/25 09:06 POC Capillary Glucose 181 H mg/dl (65-105) Results Review: All pre-operative results and documents have been reviewed as part of the pre-operative evaluation. [facility] Past Medical History Medical History DM type 2 with diabetic mixed hyperlipidemia Essential hypertension Fatigue Vertigo Type 2 diabetes mellitus with diabetic neuropathy, with long-term current use of insulin Neurogenic bladder History of ST elevation myocardial infarction (STEMI) 05/01/2019 Erectile dysfunction Surgical History Surgical History History of percutaneous coronary intervention proximal and distal LAD, mid LCX and OM1 05/2019 No pertinent past surgical history Family History Family History Father No problems noted. Mother No problems noted. Social History Social History Smoking status: Never smoker Alcohol intake: never Substance use: never Substance use type: does not use Lack of Transportation: No Lack of Food: Never True Current Housing: I Have Housing Concerned About Future Housing: No Difficulty Paying Gas/Electric Bills: No Difficulty Paying for Meds: No Currently Unemployed: No Education: Trade/Vocational Certificate Difficulty w/ Childcare or Family Care: No Living arrangements: with family Occupation/Education: occupation Gender identity (if verbalized by the patient): Male Sexual Orientation (if Verbalized by the Patient): Straight or Heterosexual Spiritual care concerns: No Anes - Eval Final PreProcedure Day of Procedure 03/14/25 10:16 Results Review: All pre-operative results and documents have been reviewed as part of the pre-operative evaluation. Informed Consent: The patient's anesthetic plan and its attendant risks and benefits were discussed with the patient/family/POA. Questions were solicited and answers provided to the satisfaction of the patient/family/POA.
--- NOTE | 2025-03-14 10:36 | S_PTH ---
PATIENT: Rahul García LOC: [facility] U#:[id number] AGE/SX: 55/M ROOM: RE03/14/[address]: Salomón Cortez DO : 1970 BED: DIS: 03/14/2025 SPEC #: [id number] RECD: 03/14/25 11:45 STATUS: PUNEET REQ #: [id number] DANUTA: 03/14/25 10:[address]: Salomón Cortez DEPT: [facility] Surgical RECD BY: Christy Machado ENTERED: 03/14/25 11:45 SP TYPE: Surgical OTHR DR: Simeon Lim MD Tissues: A - Colon Polypectomy Procedures: Hematoxylin and Eosin Stain Gross and Microscopic Level 4
[2025-03-14 10:48] VITALS: BP 88/55; PULSE 62; RESP 16; O2SAT 98
[2025-03-14 10:58] VITALS: BP 107/67; PULSE 62; RESP 16; O2SAT 98
[2025-03-14 11:08] VITALS: BP 106/70; PULSE 62; RESP 19; O2SAT 98
== END 2025-03-14 11:29 | disposition home or self-care (01) ==
PROVIDERS: PCP Family Medicine; Visit Provider Surgery
PROC: 0DJD8ZZ Inspection of Lower Intestinal Tract, Via Natural or Artificial Opening Endoscopic (ICD-10-PCS; CPT 45378; principal; 2025-03-14 10:00)
DX: Z12.11 Encounter for screening for malignant neoplasm of colon (principal); D12.0 Benign neoplasm of cecum; E11.40 Type 2 diabetes mellitus with diabetic neuropathy, unspecified; E78.2 Mixed hyperlipidemia; I10 Essential (primary) hypertension; N31.9 Neuromuscular dysfunction of bladder, unspecified; I25.2 Old myocardial infarction; N52.9 Male erectile dysfunction, unspecified; R53.83 Other fatigue; E66.9 Obesity, unspecified; Z68.36 Body mass index [BMI] 36.0-36.9, adult; Z79.4 Long term (current) use of insulin; Z79.82 Long term (current) use of aspirin; Z79.02 Long term (current) use of antithrombotics/antiplatelets; Z98.890 Other specified postprocedural states
CPT/HCPCS: 45380; 82948; 88305; J2704; J7120